=== PATIENT | female | born 1965 | race Caucasian/White ===

== ENCOUNTER 2021-04-08 16:45 | Outpatient (CLI) | payer BC, SELFPAY ==
[2021-04-08 17:52] LABS: SARS-CoV-2 Ag Negative (Negative)
[2021-04-08 18:31] LABS: SARS-CoV-2 RNA PCR Negative (Negative)
== END 2021-04-08 16:46 | disposition home or self-care (01) ==
LOC: CHSLAB 16:49
PROVIDERS: PCP Internal Medicine; Visit Provider Internal Medicine
DX: Z20.822 Contact with and (suspected) exposure to COVID-19 (principal)
CPT/HCPCS: 87426; C9803; U0003; U0005